=== PATIENT | female | born 1970 | race Caucasian/White ===

== ENCOUNTER 2017-06-20 18:44 | Observation (INO) ==
[2017-06-20] MEDS ORDERED: *HR* Morphine 2 MG/ML SYRINGE IVP ONE (19:05)
[2017-06-20] MEDS ORDERED: 0.9 % Sodium Chloride 1,000 ML IVC ONE (19:05)
[2017-06-20] MEDS ORDERED: Ondansetron 4 MG/2 ML VIAL IVP ONE (19:05)
[2017-06-20 19:28] LABS: Basophils # 0.1 K/mcL (0.0-0.2); Basophils % 0.3 %; Eosinophils % 0.1 %; Hematocrit 42.6 % (35.3-44.9); Hemoglobin 14.6 g/dL (11.5-15.4); Immature Granulocytes % 0.6 % (0-4); Lymphocytes # 0.8 K/mcL (0.6-4.6); Mean Corpuscular HGB Conc 34.3 g/dL (31.6-35.5); Mean Corpuscular Hemoglobin 31.7 pg (28.0-33.3); Mean Corpuscular Volume 92.6 fL (83.0-100.0); Mean Platelet Volume 10.5 fL (9.4-12.4); Monocytes # 1.8 K/mcL (0.0-1.3); Monocytes % 11.7 %; Neutrophils # 12.4 K/mcL (1.6-8.9); Platelet Count 221 K/mcL (140-400); Red Cell Distribution Width 12.7 % (11.5-14.5); Segmented Neutrophils % 82.3 %
--- NOTE | 2017-06-20 19:30 | Emergency Department Note ---
Disposition Clinical Impression: Bilateral kidney stones Leukocytosis Qualifiers: Leukocytosis type: unspecified Qualified Code(s): D72.829 - Elevated white blood cell count, unspecified Disposition: Admitted As Inpatient Condition: Good Forms: ED Satisfaction Letter, Work/School Release Time of Disposition: 22:11 General Adult HPI - General Chief complaint: ED Abdominal Pain Stated complaint: weakness, back pain Time Seen by Provider: 06/20/17 18:52 Source: patient Limitations: no limitations Nursing Notes Reviewed: Yes Vital Signs Reviewed: Yes - History of Present Illness HPI Narrative: Patient is a 47-year-old female that presents to emergency department with right flank and abdominal pain. She states that this began approximately 3 days ago. She states she has been having right flank pain this radiating around into her lower right abdomen. She states that she has had cloudy urine that is foul smelling. She denies any pain or burning with urination. She states that she has a history of kidney stones and this feels very similar to previous kidney stones. Patient states that any sort of movement makes her pain worse. She rates her pain as a 10 out of 10. Patient has tried taking Advil without any relief. Pain Scale: 10 - Related Data Allergies Allergy/AdvReac Type Severity Reaction Status Date / Time No Known Allergies Allergy Verified 06/20/17 18:46 All systems ED: reviewed and negative except as stated. Constitutional: Reports: fever, chills Gastrointestinal: Reports: abdominal pain, nausea Genitourinary: Reports: other (Cloudy foul-smelling urine) Musculoskeletal: Reports: back pain Past Medical History - Past Medical History Medical history: Reports: hypertension, kidney stones, thyroid disease Psychiatric history: Reports: no psych history - Social History Smoking Status: Never smoker Alcohol use: Reports: none Drug use: Reports: none Physical Exam - General Limitations: no limitations General appearance: alert, in no apparent distress - Head Head exam: atraumatic, normocephalic - Eye Eye exam: Present: normal appearance, EOMI - Neck Neck exam: Present: normal inspection, full ROM, trachea midline - Respiratory Respiratory exam: Present: normal lung sounds bilaterally. Absent: respiratory distress, wheezes - Cardiovascular Cardiovascular exam: Present: regular rate, normal rhythm, normal heart sounds, +S1, +S2 - Abdominal Exam Abdominal exam: Present: soft, tenderness, normal bowel sounds Abdominal tenderness: Present: RLQ, suprapubic, moderate - Back Exam Back exam: Present: normal inspection, full ROM, CVA tenderness (R), CVA tenderness (L). Absent: tenderness - Neurological Exam Neurological exam: Present: alert, oriented X3 - Psychiatric Psychiatric exam: Present: normal affect, normal mood - Skin Skin exam: Present: warm, dry, intact Course Vital Signs Temperature 98.9 F 06/20/17 18:47 Pulse Rate 128 06/20/17 18:47 Respiratory Rate 18 06/20/17 18:47 Blood Pressure 108/79 06/20/17 18:47 O2 Sat by Pulse Oximetry 98 06/20/17 18:47 Temperature 98.9 F 06/20/17 18:47 Pulse Rate 104 06/20/17 19:45 Respiratory Rate 16 06/20/17 19:45 Blood Pressure 108/73 06/20/17 19:45 O2 Sat by Pulse Oximetry 95 06/20/17 19:45 Oxygen Delivery Oxygen Delivery Room Air Medical Decision Making - MDM Narrative Medical decision making narrative: The patient having flank and abdominal pain history of kidney stone we will order a CBC, BMP, lipase, urine and a CT of the abdomen and pelvis. We also give the patient a liter of fluids, pain medication and antiemetics. The patient's CT scan was positive for bilateral kidney stones. She also had an elevated white count. We have called and spoke with urology and they agreed with admitting the patient to the hospital. Patient did have leukocyte esterase and bacteria in her urine. We started patient on antibiotics. Also given the patient a dose of pain medication. Patient did have an elevated white count. The patient will be admitted to the hospital. I called and spoke with the hospitalist met except the patient to their service they request that we put in the consult for urology and this has been done. The patient will be admitted to the hospital at this time for further evaluation and management. - Medical Records Medical records reviewed: Yes I reviewed the patient's medical records. - Lab Data Lab results reviewed: Yes I reviewed the patient's lab results. Result diagrams: 06/20/17 19:20 06/20/17 19:20 Lab Results 06/20/17 06/20/17 06/20/17 Range/Units 19:20 19:20 19:25 WBC 15.1 H (4.3-11.1) K/mcL RBC 4.60 (3.82-4.97) M/mcL Hgb 14.6 (11.5-15.4) g/dL Hct 42.6 (35.3-44.9) % MCV 92.6 (83.0-100.0) fL MCH 31.7 (28.0-33.3) pg MCHC 34.3 (31.6-35.5) g/dL RDW 12.7 (11.5-14.5) % Plt Count 221 (140-400) K/mcL MPV 10.5 (9.4-12.4) fL Immature Gran % 0.6 (0-4) % Seg Neutrophils % 82.3 % Lymphocytes % 5.0 % Monocytes % 11.7 % Eosinophils % 0.1 % Basophils % 0.3 % Neutrophils # 12.4 H (1.6-8.9) K/mcL Lymphocytes # 0.8 (0.6-4.6) K/mcL Monocytes # 1.8 H (0.0-1.3) K/mcL Eosinophils # 0.0 (0.0-0.6) K/mcL Basophils # 0.1 (0.0-0.2) K/mcL Sodium 133 L (136-145) mEq/L Potassium 3.4 L (3.5-5.1) mEq/L Chloride 95 L (98-107) mEq/L Carbon Dioxide 28 (23-29) mEq/L BUN 18 (6-20) mg/dL Creatinine 1.01 (0.60-1.20) mg/dL Est GFR ( Amer) > 60 (> 60) Est GFR (Non-Af Amer) 59 L (> 60) BUN/Creatinine Ratio 18 (6-26) Glucose 140 H (70-105) mg/dL Calculated Osmolality 280 (280-300) Calcium 9.2 (8.6-10.3) mg/dL Total Bilirubin 0.8 (0.3-1.0) mg/dL Direct Bilirubin 0.1 (0.0-0.2) mg/dL Indirect Bilirubin 0.7 (0.0-1.2) mg/dL AST 15 (13-39) Units/L ALT 22 (7-52) Units/L Alkaline Phosphatase 59 (34-104) Units/L Serum Total Protein 7.3 (6.4-8.9) g/dL Albumin 4.0 (3.5-5.7) g/dL Globulin 3.3 (2.4-3.5) g/dL Albumin/Globulin Ratio 1.2 (1.1-2.2) Lipase 13 (11-82) Units/L Urine Color Dark Yellow (Yellow) Urine Clarity Turbid A (Clear) Urine pH 5.5 (5.0-8.0) pH Units Ur Specific [place] 1.023 (1.010-1.025) Urine Protein 100 H (Neg-Trace) mg/dL Urine Glucose (UA) Normal (Normal) mg/dL Urine Ketones 15 H (Negative) mg/dL Urine Blood Moderate H (Negative) Urine Nitrite Negative (Negative) Urine Bilirubin Negative (Negative) Urine Urobilinogen Normal (Normal) mg/dL Ur Leukocyte Esterase Large H (Negative) Urine Microscopic RBC 5-15 H (0-3) per hpf Urine Microscopic WBC TNTC H (0-3) per hpf Ur Squamous Epith Cells Many H (None-Few) per lpf Urine Bacteria Many H (None-Few) per hpf Hyaline Casts None Seen (None-Few) per lpf Ur Culture Indicated? NO (NO) Urine Test (Negative) 06/20/17 Range/Units 19:25 WBC (4.3-11.1) K/mcL RBC (3.82-4.97) M/mcL Hgb (11.5-15.4) g/dL Hct (35.3-44.9) % MCV (83.0-100.0) fL MCH (28.0-33.3) pg MCHC (31.6-35.5) g/dL RDW (11.5-14.5) % Plt Count (140-400) K/mcL MPV (9.4-12.4) fL Immature Gran % (0-4) % Seg Neutrophils % % Lymphocytes % % Monocytes % % Eosinophils % % Basophils % % Neutrophils # (1.6-8.9) K/mcL Lymphocytes # (0.6-4.6) K/mcL Monocytes # (0.0-1.3) K/mcL Eosinophils # (0.0-0.6) K/mcL Basophils # (0.0-0.2) K/mcL Sodium (136-145) mEq/L Potassium (3.5-5.1) mEq/L Chloride (98-107) mEq/L Carbon Dioxide (23-29) mEq/L BUN (6-20) mg/dL Creatinine (0.60-1.20) mg/dL Est GFR ( Amer) (> 60) Est GFR (Non-Af Amer) (> 60) BUN/Creatinine Ratio (6-26) Glucose (70-105) mg/dL Calculated Osmolality (280-300) Calcium (8.6-10.3) mg/dL Total Bilirubin (0.3-1.0) mg/dL Direct Bilirubin (0.0-0.2) mg/dL Indirect Bilirubin (0.0-1.2) mg/dL AST (13-39) Units/L ALT (7-52) Units/L Alkaline Phosphatase (34-104) Units/L Serum Total Protein (6.4-8.9) g/dL Albumin (3.5-5.7) g/dL Globulin (2.4-3.5) g/dL Albumin/Globulin Ratio (1.1-2.2) Lipase (11-82) Units/L Urine Color (Yellow) Urine Clarity (Clear) Urine pH (5.0-8.0) pH Units Ur Specific [place] (1.010-1.025) Urine Protein (Neg-Trace) mg/dL Urine Glucose (UA) (Normal) mg/dL Urine Ketones (Negative) mg/dL Urine Blood (Negative) Urine Nitrite (Negative) Urine Bilirubin (Negative) Urine Urobilinogen (Normal) mg/dL Ur Leukocyte Esterase (Negative) Urine Microscopic RBC (0-3) per hpf Urine Microscopic WBC (0-3) per hpf Ur Squamous Epith Cells (None-Few) per lpf Urine Bacteria (None-Few) per hpf Hyaline Casts (None-Few) per lpf Ur Culture Indicated? (NO) Urine Test Negative (Negative) - Radiology Data Radiology results reviewed: Yes I reviewed the patient's radiology results. Abdomen/Pelvis CT 06/20/17 19:06 IMPRESSION: 1. 6.5 mm obstructing stone within the distal right ureter with resultant right hydroureter and hydronephrosis as well as right perinephric stranding. 2. Nonobstructing 3 mm stone within the proximal left ureter and nonobstructing 6.4 mm stone within the left kidney. 3. Multiple pulmonary nodules within the right lower and middle lobes with the largest measuring 8.4 mm. Follow-up per Fleischner criteria. RECOMMENDATIONS: Fleischner Society guidelines for follow-up and management of incidentally detected pulmonary nodules: Single Solid Nodule: Nodule size less than 6 mm In a low-risk patient, no routine follow-up. In a high-risk patient, optional CT at 12 months. Nodule size equals 6-8 mm In a low-risk patient, CT at 6-12 months, then consider CT at 18-24 months. In a high-risk patient, CT at 6-12 months, then CT at 18-24 months. Nodule size greater than 8 mm In a low-risk patient, consider CT, PET/CT, or tissue sampling at 3 months. In a high-risk patient, consider CT, PET/CT, or tissue sampling at 3 months. Multiple Solid Nodules: Nodule size less than 6 mm In a low-risk patient, no routine follow-up. In a high-risk patient, optional CT at 12 months. Nodule size equals 6-8 mm In a low-risk patient, CT at 3-6 months, then consider CT at 18-24 months. In a high-risk patient, CT at 3-6 months, then CT at 18-24 months. Nodule size greater than 8 mm In a low-risk patient, CT at 3-6 months, then consider CT at 18-24 months. In a high-risk patient, CT at 3-6 months, then CT at 18-24 months. - Low risk patients include individuals with minimal or absent history of smoking and other known risk factors. - High risk patients include individuals with a history or smoking or known risk factors. Radiology 2017 http://pubs.rsna.org/doi/full/[email or web address] D/ / Dillon Moreland MD / Dillon Moreland MD Interpreting Provider: Dillon Moreland MD
[2017-06-20 19:33] LABS: Bilirubin,Urine Negative (Negative); Blood,Urine Moderate (Negative); Clarity,Urine Turbid (Clear); Color,Urine Dark Yellow (Yellow); Glucose,Urine (UA) Normal (Normal); Ketones,Urine 15 mg/dL (Negative); Leukocyte Esterase,Urine Large (Negative); Nitrite,Urine Negative (Negative); PH,Urine 5.5 pH Units (5.0-8.0); Protein,Urine 100 mg/dL (Neg-Trace); Specific Gravity,Urine 1.023 (1.010-1.025); Urobilinogen,Urine Normal (Normal)
[2017-06-20 19:35] LABS: Bacteria,Urine Many per hpf (None-Few); Hyaline Casts,Urine None Seen per lpf (None-Few); Squamous Epithelial Cell,Urine Many per lpf (None-Few); WBC,Urine TNTC per hpf (0-3)
[2017-06-20 19:43] LABS: Alanine Aminotransferase 22 Units/L (7-52); Albumin/Globulin Ratio 1.2 (1.1-2.2); Alkaline Phosphatase 59 Units/L (34-104); Aspartate Amino Transferase 15 Units/L (13-39); BUN/Creatinine Ratio 18 (6-26); Bilirubin,Direct 0.1 mg/dL (0.0-0.2); Bilirubin,Indirect 0.7 mg/dL (0.0-1.2); Bilirubin,Total 0.8 mg/dL (0.3-1.0); Blood Urea Nitrogen 18 mg/dL (6-20); Calcium 9.2 mg/dL (8.6-10.3); Carbon Dioxide 28 mEq/L (23-29); Chloride 95 mEq/L (98-107); Globulin 3.3 g/dL (2.4-3.5); Glucose 140 mg/dL (70-105); Lipase 13 Units/L (11-82); Osmolality,Calculated 280 (280-300); Potassium 3.4 mEq/L (3.5-5.1); Sodium 133 mEq/L (136-145); Total Protein 7.3 g/dL (6.4-8.9); eGFR For African Americans > 60 (> 60); eGFR For Non-African Americans 59 (> 60)
[2017-06-20] MEDS ORDERED: Levofloxacin 750 MG/150 ML 750 MG/150 ML BAG IVPB ONE (19:49)
[2017-06-20] MEDS ORDERED: *HR* HYDROmorphone (PF) 1 MG/ML SYRINGE IVP ONE (20:26)
--- NOTE | 2017-06-20 20:43 | Emergency Department Note ---
START Narrative - START START: I examined this patient and my medical decision-making was reviewed with the Resident Physician. I agree with the documented findings, disposition and treatment plan as described except to the extent set forth below. 47-year-old female presents emergency room for back pain. Patient was found to have 2 ureteral stones. One on the right side as well as one on the left side. History of urosepsis secondary to an infected ureteral stone in the past. Patient will need to be admitted as she does have an elevated white count as well as both ureters being affected at the same time. Her BUN/creatinine are stable. I have ordered IV Levaquin. We have consult did with Dr. Hutson with urology. We will admit to the hospitalist.
[2017-06-20] MEDS ORDERED: *HR* OxyCODONE/APAP 5/325 TABLET PO PRN (22:12)
[2017-06-20] MEDS ORDERED: Naloxone 0.4 MG/ML INJ IVP PRN (23:22)
[2017-06-20] MEDS ORDERED: Acetaminophen 325 MG TABLET PO PRN (23:22)
[2017-06-20] MEDS: 0.9 % Sodium Chloride 1,000 ML IVC SCH (23:57)
[2017-06-21] MEDS ORDERED: *HR* HYDROmorphone (PF) 1 MG/ML SYRINGE IVP PRN ×4 (00:51→16:20)
--- NOTE | 2017-06-21 01:00 | Internal Med History&Physical ---
Date of Encounter: 06/20/17 Time of Encounter: 23:10 Assessment and Plan (1) Hydronephrosis with renal calculous obstruction Current visit: Yes Status: Acute Will follow up with urology consult. Continue patient supportiv care, IVF, dilaudid prn pain, Zofran prn nausea. NPO at midnight. (2) Bilateral kidney stones Current visit: Yes Status: Acute (3) Multiple lung nodules on CT Current visit: Yes Status: Acute Seen on CT abdomen/pelvis. Multiple pulmonary nodules within the right lower and middle lobes with the largest measuring 8.4 mm. Fleischner Society guidelines recommend CT at 3-6 months. Internal Medicine - H&P: HPI History of present illness: 47 year old female with history of nephrolithiasis presents for bilateral flank pain. Started 3 days ago which radiates down to groin, with urine changes in appearance and smell. She has history of UTI causing sepsis. Today she is shown to have UTI and leukocytosis. Creatinine is within normal limits but GFR is in 50s. A CT of abdomen/pelvis showed 6.5 mm obstructing stone in right ureter with hydroureter and hydronephrosis. She was started on IVF, Levaquin, and given Dilauded for pain. Past Med Surg Social Fam HX - Past Medical History Medical history: hypertension, kidney stones, thyroid disease Psychiatric history: no psych history - Past Surgical History Surgical History: cholecystectomy, hysterectomy - Social History Smoking Status: Never smoker Alcohol use: none Drug use: none Internal Medicine - H&P: Meds 3 Allergy/AdvReac Type Severity Reaction Status Date / Time No Known Allergies Allergy Verified 06/20/17 18:46 All Systems PM: A 10-system review of systems was performed and is negative for pertinent findings except as documented above in the HPI. - Constitutional Constitutional: chills, fever(s), no lethargy, no weakness - EENT Eyes: no change in vision, no discharge, no pain, no photophobia - Cardiovascular Cardiovascular ROS IM: no chest pain, no diaphoresis, no dyspnea, no lightheadedness, no palpitations, no syncope - Respiratory Respiratory: no cough, no dyspnea, no wheezing, no excessive phlegm production - Gastrointestinal Gastrointestinal: abdominal pain - Genitourinary Genitourinary: dysuria, flank pain, no difficulty urinating, no difficulty voiding, no genital lesions, no hematuria - Integumentary Integumentary IM: no rash, no unusual bruising - Constitutional Vitals: Temp Pulse Resp BP Pulse Ox 98.1 F 87 16 102/67 97 06/20/17 23:53 06/20/17 23:53 06/20/17 23:53 06/20/17 23:53 06/20/17 23:53 Exam: - General Limitations: no limitations General appearance: alert, in no apparent distress - Head Head exam: atraumatic, normocephalic - Eye Eye exam: Present: normal appearance, EOMI - Neck Neck exam: Present: normal inspection, full ROM, trachea midline - Respiratory Respiratory exam: Present: normal lung sounds bilaterally. Absent: respiratory distress, wheezes - Cardiovascular Cardiovascular exam: Present: regular rate, normal rhythm, normal heart sounds, +S1, +S2 - Abdominal Exam Abdominal exam: Present: soft, tenderness, normal bowel sounds Abdominal tenderness: Present: RLQ, suprapubic, moderate - limits exam due to pain - Back Exam Back exam: Present: normal inspection, full ROM, CVA tenderness (R), CVA tenderness (L). - Neurological Exam Neurological exam: Present: alert, oriented X3 - Psychiatric Psychiatric exam: Present: normal affect, normal mood - Skin Skin exam: Present: warm, dry, intact Internal Med - H&P Results - Labs CBC & Chem 7: 06/20/17 19:20 06/20/17 19:20
[2017-06-21 04:47] LABS: Hematocrit 32.7 % (35.3-44.9); Mean Corpuscular HGB Conc 34.3 g/dL (31.6-35.5); Mean Corpuscular Hemoglobin 31.5 pg (28.0-33.3); Mean Corpuscular Volume 92.1 fL (83.0-100.0); Platelet Count 182 K/mcL (140-400); Red Blood Count 3.55 M/mcL (3.82-4.97); Red Cell Distribution Width 12.8 % (11.5-14.5)
[2017-06-21 04:49] LABS: BUN/Creatinine Ratio 23 (6-26); Blood Urea Nitrogen 17 mg/dL (6-20); Calcium 7.9 mg/dL (8.6-10.3); Carbon Dioxide 28 mEq/L (23-29); Chloride 103 mEq/L (98-107); Glucose 115 mg/dL (70-105); Osmolality,Calculated 282 (280-300); Potassium 3.7 mEq/L (3.5-5.1); Sodium 135 mEq/L (136-145); eGFR For African Americans > 60 (> 60); eGFR For Non-African Americans > 60 (> 60)
[2017-06-21 05:15] LABS: Hemoglobin 11.2 g/dL (11.5-15.4)
[2017-06-21 05:16] LABS: Lymphocytes # 1.4 K/mcL (0.6-4.6); Monocytes # 1.8 K/mcL (0.0-1.3); Neutrophils # 8.2 K/mcL (1.6-8.9)
[2017-06-21 05:17] LABS: Platelet Estimate Normal (Normal)
[2017-06-21] MEDS: 0.9 % Sodium Chloride 1,000 ML IVC SCH (06:37)
--- NOTE | 2017-06-21 06:47 | Urology - Consult Note ---
Date of Encounter: 06/21/17 Time of Encounter: 06:47 Urology CN:DENISHA History of present illness: Ms. Montalvo is a 47 year old female presents to ER with flank pain. CT results below. +hx of stone stones. states has not had decrease in UO CT scan 1. 6.5 mm obstructing stone within the distal right ureter with resultant right hydroureter and hydronephrosis as well as right perinephric stranding. 2. Nonobstructing 3 mm stone within the proximal left ureter and nonobstructing 6.4 mm stone within the left kidney. Past Med Surg Social Fam HX - Past Medical History Medical history: hypertension, kidney stones, thyroid disease Psychiatric history: no psych history - Past Surgical History Surgical History: cholecystectomy, hysterectomy - Social History Smoking Status: Never smoker Alcohol use: none Drug use: none Medications and Allergies 3 Allergy/AdvReac Type Severity Reaction Status Date / Time No Known Allergies Allergy Verified 06/20/17 18:46 Exam Initial Vital Signs Temp Pulse Resp BP Pulse Ox 98.9 F 128 18 108/79 98 06/20/17 18:47 06/20/17 18:47 06/20/17 18:47 06/20/17 18:47 06/20/17 18:47 Urology Results - Labs 06/21/17 04:10 06/21/17 04:10 Abnormal lab results WBC 11.4 K/mcL (4.3-11.1) H 06/21/17 04:10 RBC 3.55 M/mcL (3.82-4.97) L 06/21/17 04:10 Hgb 11.2 g/dL (11.5-15.4) L D 06/21/17 04:10 Hct 32.7 % (35.3-44.9) L 06/21/17 04:10 Band Neutrophils % 26.0 % (0-4) H 06/21/17 04:10 Monocytes # 1.8 K/mcL (0.0-1.3) H 06/21/17 04:10 Sodium 135 mEq/L (136-145) L 06/21/17 04:10 Glucose 115 mg/dL (70-105) H 06/21/17 04:10 Calcium 7.9 mg/dL (8.6-10.3) L 06/21/17 04:10 Urine Clarity Turbid (Clear) A 06/20/17 19:25 Urine Protein 100 mg/dL (Neg-Trace) H 06/20/17 19:25 Urine Ketones 15 mg/dL (Negative) H 06/20/17 19:25 Urine Blood Moderate (Negative) H 06/20/17 19:25 Ur Leukocyte Esterase Large (Negative) H 06/20/17 19:25 Urine Microscopic RBC 5-15 per hpf (0-3) H 06/20/17 19:25 Urine Microscopic WBC TNTC per hpf (0-3) H 06/20/17 19:25 Ur Squamous Epith Cells Many per lpf (None-Few) H 06/20/17 19:25 Urine Bacteria Many per hpf (None-Few) H 06/20/17 19:25 Diabetes panel 06/21/17 Range/Units 04:10 Sodium 135 L (136-145) mEq/L Potassium 3.7 (3.5-5.1) mEq/L Chloride 103 (98-107) mEq/L Carbon Dioxide 28 (23-29) mEq/L BUN 17 (6-20) mg/dL Creatinine 0.75 (0.60-1.20) mg/dL Glucose 115 H (70-105) mg/dL Calcium 7.9 L (8.6-10.3) mg/dL Calcium panel 06/21/17 Range/Units 04:10 Calcium 7.9 L (8.6-10.3) mg/dL Pituitary panel 06/21/17 Range/Units 04:10 Sodium 135 L (136-145) mEq/L Potassium 3.7 (3.5-5.1) mEq/L Chloride 103 (98-107) mEq/L Carbon Dioxide 28 (23-29) mEq/L BUN 17 (6-20) mg/dL Creatinine 0.75 (0.60-1.20) mg/dL Glucose 115 H (70-105) mg/dL Calcium 7.9 L (8.6-10.3) mg/dL Adrenal panel 06/21/17 Range/Units 04:10 Sodium 135 L (136-145) mEq/L Potassium 3.7 (3.5-5.1) mEq/L Chloride 103 (98-107) mEq/L Carbon Dioxide 28 (23-29) mEq/L BUN 17 (6-20) mg/dL Creatinine 0.75 (0.60-1.20) mg/dL Glucose 115 H (70-105) mg/dL Calcium 7.9 L (8.6-10.3) mg/dL All other labs normal. Consult Discharge Plan - Plan Referrals: Rossana Harmon MD [Primary Care Provider] -
--- NOTE | 2017-06-21 09:13 | Internal Med Progress Note ---
Date of Encounter: 06/21/17 Time of Encounter: 09:10 - Assessment and plan (1) UTI (urinary tract infection) Current Visit: Yes Status: Acute Assessment and plan: Patient has obstructive stone and UA shows UTI. Concerning for pyelonephritis. Will start ceftriaxone IV. Patient received 1 dose of Levaquin on admission. Qualifiers: Urinary tract infection type: acute pyelonephritis Qualified Code(s): N10 - Acute pyelonephritis (2) Bilateral kidney stones Current Visit: Yes Status: Acute Assessment and plan: Patient has a right-sided 6.5 mm obstructive stone with distal right ureter hydroureteral and hydronephrosis. Urologist was consulted planning for cystoscopic stents placement. She also has nonobstructing 3 mm stone was in the proximal left ureter and nonobstructing 6.4 mm stone was in the left kidney. Plan control was IV Dilaudid continue IV fluids (3) Leukocytosis Current Visit: Yes Status: Acute Assessment and plan: His leukocytosis is likely from acute pyelonephritis continue ceftriaxone Qualifiers: Leukocytosis type: bandemia Qualified Code(s): D72.825 - Bandemia (4) Multiple lung nodules on CT Current Visit: Yes Status: Acute Assessment and plan: Follow-up CT scan in 6-12 months (5) Hydronephrosis with renal calculous obstruction Current Visit: Yes Status: Acute Assessment and plan: Urologist was consulted and planning for stents placement. - Time Spent With Patient 25 - 35 minutes - Subjective Interval history: 47 year old female with history of nephrolithiasis presents for bilateral flank pain. A CT of abdomen/pelvis showed 6.5 mm obstructing stone in right ureter with hydroureter and hydronephrosis and left nonobstructing stones She was started on IVF, received one dose of Levaquin, and given Dilauded for pain. Patient feels better, she still have low back pain radiating to right lower quadrant drain 7 out of 10 sharp cramping. Afebrile white cells trending down creatinine also improved. She is waiting for procedure for possible stents placement - Constitutional Vitals: Temp Pulse Resp BP Pulse Ox 98.1 F 79 14 90/57 97 06/21/17 07:23 06/21/17 07:23 06/21/17 07:23 06/21/17 07:23 06/21/17 07:23 Exam: CONSTITUTIONAL: patient appears as an age appropriate female in no acute distress. EYES Clear sclerae, bilateral pupils are equal, reactive to light. EMOI. RESPIRATORY: No accessory muscle use, bilateral clear to auscultation, no wheezing, no crackles/rales. CARDIOVASCULAR: Regular heart rate, normal S1 and S2, no murmurs GASTROINTESTINAL: bowel sounds present, soft, no tenderness. MUSCULOSKELETAL: Joints in normal range of motion, no clubbing, no edema, no cyanosis. Bilateral peripheral pulses 2+. NEUROLOGIC: CN II to XII are grossly intact, no focal neurological deficit. Internal Medicine: Result - Labs CBC & Chem 7: 06/21/17 04:10 06/21/17 04:10 Labs: Short CBC 06/21/17 Range/Units 04:10 WBC 11.4 H (4.3-11.1) K/mcL Hgb 11.2 L D (11.5-15.4) g/dL Hct 32.7 L (35.3-44.9) % Plt Count 182 (140-400) K/mcL Neutrophils # 8.2 (1.6-8.9) K/mcL BMP 06/21/17 04:10 Sodium 135 L Potassium 3.7 Chloride 103 Carbon Dioxide 28 BUN 17 Creatinine 0.75 Glucose 115 H Calcium 7.9 L Consult Discharge Plan - Plan Referrals: Rossana Harmon MD [Primary Care Provider] -
[2017-06-21] MEDS ORDERED: cefTRIAXone 1,000 MG in Water for inj. (sterile) 10 ML IVP SCH (10:00)
[2017-06-21] MEDS ORDERED: *HR* OxyCODONE/APAP 5/325 TABLET PO PRN ×2 (11:24→16:20)
--- NOTE | 2017-06-21 13:49 | Anesthesia Evaluation PreOp ---
Date of Encounter: 06/21/17 Time of Encounter: 13:47 - Past History Planned Operation: bilateral USE with laser Cardiac History: HTN Pulmonary History: Other (lung nodules) [employer] AGENT History: Denies Any Significant HX Other Medical History: Renal (bilateral stones with UTI), Thyroid (hypo) Anesthesia History: No Prior Anesthetic Complications, Past Anesthesia (carine, BRAD) : No Alcohol Use: none Drug use: none Medications and Allergies Celecoxib [Celebrex] 200 mg PO DAILY 06/21/17 [History] Levothyroxine [Synthroid] 75 mcg PO DAILY 06/21/17 [History] Lisinopril [Zestril] 20 mg PO DAILY 06/21/17 [History] Meloxicam [Mobic] 15 mg PO DAILY 06/21/17 [History] 3 Allergy/AdvReac Type Severity Reaction Status Date / Time No Known Allergies Allergy Verified 06/20/17 18:46 - Meds/Allergy Pre-op Review Medications Reviewed: Yes Allergies Reviewed: Yes Beta Blockers on Current Med List: No Anesthesia Results - Labs 06/21/17 04:10 06/21/17 04:10 Anesthesia Exam Selected Entries 06/21/17 10:43 Temperature 98.6 F Pulse Rate 72 Respiratory Rate 14 Blood Pressure 92/61 O2 Sat by Pulse Oximetry 96 Weight: 72kg NPO (# of Hours): 8 - HEENT Pupil (Motor): EOMI Mallampati: II Teeth: Normal Oral Opening: Less than or equal to 3 - [employer] AGENT LOC: Oriented [employer] Motor: Normal RUE, Normal LUE, Normal RLE, Normal LLE, Normal Face [employer] Sensory: Normal: RUE, LUE, RLE, LLE, Face - Cardiac Rhythm: Regular Murmur: None - Pulmonary Breath Sounds: bilateral Clear Respiratory Effort: Symmetrical Anesthesia Assess/Plan ASA Score: 2 Modified Vanessa Scale for Level of Consciousness: Cooperative, oriented, and tranquil Anesthetic Plan: General Monitoring Plan: Standard Monitors Recovery Plan: PACU (agrees to [place])
--- NOTE | 2017-06-21 14:57 | Operative Note ---
Date of procedure: 06/21/17 Pre-op diagnosis: Bilateral ureteral stones. 7 mm distal (left). 3 mm prox right Post-op diagnosis: same Procedure: Bilateral ureteroscopic stone extraction Right side with laser lithotripsy Bilateral retrograde pyelogram Bilateral JJ stents. Anesthesia: GETA Surgeon: Javier Harmon Estimated blood loss (cc): 0 Specimen: stone fragments Condition: stable Disposition: PACU Procedure in Detail: PROCEDURE IN DETAIL: Patient was taken back to the operating room, positioned supine on the operating table. Anesthesia was applied without complication. They were moved into dorsal lithotomy. Careful attention was maintained to cushion all pressure points for patient's safety. They were prepped and draped in sterile fashion. Time-out was performed with the proper patient and procedure. A 21-Nepali rigid cystoscope was inserted into the bladder without difficulty. Systematic examination of bladder revealed no abnormalities. The right ureteral orifice was cannulated using a 5-Nepali ureteral Catheter and a retrograde pyelogram was performed using Isovue. A filling defect was identified which corresponded to the stone. At that point, a zip wire was placed through the 5-Nepali and confirmed in the renal pelvis with fluoroscopy. A semi-rigid ureteroscope was carefully inserted into the bladder and guided into the ureteral oriface. At that point, the stone was encountered and I felt that it required fragmentation for safe extraction. A 200 micron holmium laser fiber on a setting of 8 and 800 was used to fragment the stone into multiple pieces. The fragments were individually basketed out of the ureter with a 1.9 tipless basket. All stone in the right ureter was removed. I then proceeded to cannulate the left ureteral orifice with the semirigid ureteroscope. Retrograde pyelogram confirmed a proximal filling defect consistent with stone. I passed a zip wire and then passed the semirigid ureteroscope around the zip wire. I was able to reach the proximal stone with the semirigid scope and basket extract the stone without performing laser lithotripsy. I placed a second zip wire on the left side. At the end of the procedure two 4.8 x 26 ureteral stents were placed over the zip wires under fluoroscopy without complication. The bladder was drained along with the stone fragments. They were collected and sent for stone analysis. The strings on both stents were left attached to the stents and secured to the patient for easy removal in approximately 72 hours
[2017-06-21] MEDS ORDERED: *HR* Midazolam HCl 2 MG/2 ML VIAL ONE (15:07)
[2017-06-21] MEDS ORDERED: Dexamethasone 4 MG/ML VIAL ONE (15:07)
[2017-06-21] MEDS ORDERED: *HR* FentaNYL (PF) 100 MCG/2 ML VIAL ONE ×2 (15:07→15:10)
[2017-06-21] MEDS ORDERED: Ondansetron 4 MG/2 ML VIAL ONE (15:07)
[2017-06-21] MEDS ORDERED: *HR* Propofol 200 MG/20 ML VIAL IVP ONE (15:07)
[2017-06-21] MEDS ORDERED: *HR* Promethazine 25 MG/ML VIAL IVP PRN (15:15)
[2017-06-21] MEDS ORDERED: Ketorolac 30 MG/ML VIAL ONE (15:31)
--- NOTE | 2017-06-21 15:56 | Event Note ---
Date of Encounter: 06/21/17 Time of Encounter: 15:55 Both the left and right ureteral stones were extracted without complication. I recommend the patient is observed overnight. If her vital signs are stable and she is afebrile okay to discharge in the morning. The stents can be removed on Tuesday. The patient can remove the stents by pulling on the strings until the entire stents are out. If patient unable to remove stents at home, patient can present to the urology office for stent removal.
--- NOTE | 2017-06-21 16:09 | Anesthesia Evaluation Post Op ---
Date of Encounter: 06/21/17 Time of Encounter: 16:08 - Vital Signs Vital Signs: Selected Entries 06/21/17 15:43 06/21/17 16:02 Temperature 98.7 F Pulse Rate 83 Respiratory Rate 16 Blood Pressure 100/71 O2 Sat by Pulse Oximetry 95 Oxygen Flow Rate (LPM) 2 - Lungs Lungs: Clear Ascult./Percussion - Airway Airway: Non-obstructed - Cardiovascular Regular Rate - Mental Status Mental Status: Alert & Oriented, Answers Appropriately - Pain Pain Scale: 2 Pain Scale used: Numeric (1 - 10) - Nausea Vomiting Nausea Vomiting: Not Present - Hydration Hydration: Ice chips, Has not voided - Discharge PostOp Status: Transfer Patient to floor
[2017-06-21] MEDS ORDERED: Acetaminophen 325 MG TABLET PO PRN (16:20)
[2017-06-21] MEDS ORDERED: Naloxone 0.4 MG/ML INJ IVP PRN (16:20)
[2017-06-22 05:42] LABS: Hemoglobin 11.5 g/dL (11.5-15.4); Mean Corpuscular HGB Conc 33.8 g/dL (31.6-35.5); Mean Corpuscular Hemoglobin 31.7 pg (28.0-33.3); Mean Corpuscular Volume 93.7 fL (83.0-100.0); Mean Platelet Volume 11.4 fL (9.4-12.4); Platelet Count 240 K/mcL (140-400); Red Blood Count 3.63 M/mcL (3.82-4.97); Red Cell Distribution Width 13.1 % (11.5-14.5)
[2017-06-22 05:54] LABS: BUN/Creatinine Ratio 23 (6-26); Blood Urea Nitrogen 18 mg/dL (6-20); Calcium 8.4 mg/dL (8.6-10.3); Carbon Dioxide 24 mEq/L (23-29); Chloride 108 mEq/L (98-107); Glucose 165 mg/dL (70-105); Osmolality,Calculated 294 (280-300); Potassium 3.5 mEq/L (3.5-5.1); Sodium 139 mEq/L (136-145); eGFR For African Americans > 60 (> 60); eGFR For Non-African Americans > 60 (> 60)
[2017-06-22 06:10] LABS: Lymphocytes # 0.9 K/mcL (0.6-4.6); Monocytes # 0.5 K/mcL (0.0-1.3); Neutrophils # 7.1 K/mcL (1.6-8.9); Platelet Estimate Normal (Normal)
[2017-06-22 06:49] VITALS: BP 110/70
--- NOTE | 2017-06-22 06:58 | Urology Progress Note ---
Date of Encounter: 06/22/17 Time of Encounter: 06:58 - Assessment and Plan (1) Bilateral ureteral calculi Current Visit: Yes Status: Resolved Assessment and plan: Okay with discharge per urology standpoint. Patient also ready for discharge. Labs and vital signs stable. Patient states she is comfortable removing the stents at home on Brian. M.D. provided instructions. Okay to follow-up with urology in 2 weeks. Recommend Bactrim double strength 1 tablet by mouth twice a day for 7 days. Pyridium 200 mg by mouth 3 times a day when necessary for stent discomfort or burning on urination. Vicodin as needed for discomfort. Progress Note Subjective: feels better Narrative: having expected stent discomfort. Objective Initial Vital Signs Temp Pulse Resp BP Pulse Ox 98.9 F 128 18 108/79 98 06/20/17 18:47 06/20/17 18:47 06/20/17 18:47 06/20/17 18:47 06/20/17 18:47 - General physical appearance Present: well developed, no distress - Labs 06/22/17 05:04 06/22/17 05:04 Diabetes panel 06/22/17 Range/Units 05:04 Sodium 139 (136-145) mEq/L Potassium 3.5 (3.5-5.1) mEq/L Chloride 108 H (98-107) mEq/L Carbon Dioxide 24 (23-29) mEq/L BUN 18 (6-20) mg/dL Creatinine 0.77 (0.60-1.20) mg/dL Glucose 165 H (70-105) mg/dL Calcium 8.4 L (8.6-10.3) mg/dL Calcium panel 06/22/17 Range/Units 05:04 Calcium 8.4 L (8.6-10.3) mg/dL Pituitary panel 06/22/17 Range/Units 05:04 Sodium 139 (136-145) mEq/L Potassium 3.5 (3.5-5.1) mEq/L Chloride 108 H (98-107) mEq/L Carbon Dioxide 24 (23-29) mEq/L BUN 18 (6-20) mg/dL Creatinine 0.77 (0.60-1.20) mg/dL Glucose 165 H (70-105) mg/dL Calcium 8.4 L (8.6-10.3) mg/dL Adrenal panel 06/22/17 Range/Units 05:04 Sodium 139 (136-145) mEq/L Potassium 3.5 (3.5-5.1) mEq/L Chloride 108 H (98-107) mEq/L Carbon Dioxide 24 (23-29) mEq/L BUN 18 (6-20) mg/dL Creatinine 0.77 (0.60-1.20) mg/dL Glucose 165 H (70-105) mg/dL Calcium 8.4 L (8.6-10.3) mg/dL Consult Discharge Plan - Plan Referrals: Rossana Harmon MD [Primary Care Provider] -
--- NOTE | 2017-06-22 08:37 | Discharge Summary ---
Date of Encounter: 06/22/17 Time of Encounter: 08:35 - Discharge Diagnosis (1) Leukocytosis Priority: Primary Status: Acute Qualifiers: Leukocytosis type: bandemia Qualified Code(s): D72.825 - Bandemia (2) Hydronephrosis with renal calculous obstruction Priority: Primary Status: Acute (3) UTI (urinary tract infection) Priority: Primary Status: Acute Qualifiers: Urinary tract infection type: acute pyelonephritis Qualified Code(s): N10 - Acute pyelonephritis (4) Multiple lung nodules on CT Priority: Secondary Status: Acute - Discharge Medications Prescriptions: OxyCODONE/APAP 5/325 [Percocet 5/325 MG] 1 each PO Q4HR PRN #12 tablet PRN Reason: Moderate Pain Phenazopyridine [Pyridium] 100 mg PO TID PRN #12 tablet PRN Reason: Pain Sulfamethoxazole/Trimeth DS [Bactrim DS] 1 each PO BID #14 tablet Home Medications: Celecoxib [Celebrex] 200 mg PO DAILY 06/21/17 [History] Levothyroxine [Synthroid] 75 mcg PO DAILY 06/21/17 [History] Lisinopril [Zestril] 20 mg PO DAILY 06/21/17 [History] Meloxicam [Mobic] 15 mg PO DAILY 06/21/17 [History] OxyCODONE/APAP 5/325 [Percocet 5/325 MG] 1 each PO Q4HR PRN #12 tablet 06/22/17 [Rx] Phenazopyridine [Pyridium] 100 mg PO TID PRN #12 tablet 06/22/17 [Rx] Sulfamethoxazole/Trimeth DS [Bactrim DS] 1 each PO BID #14 tablet 06/22/17 [Rx] Allergies/Adverse Reactions: 3 Allergy/AdvReac Type Severity Reaction Status Date / Time No Known Allergies Allergy Verified 06/20/17 18:46 Date of admission: 06/20/17 21:16 Primary care physician: Rossana Harmon, Consults: 06/20/17 21:26 Consult to Urology [CONS] Routine Consulting Provider: Urology Zahraa Reason for Consult: kidney stones Call Completed: Yes - Patient Status Disposition: Home, Self-Care Condition: Fair Overall status at discharge: patient is progressing back to baseline - Discharge Instructions Follow Up With: Javier Harmon MD [Partnered Physician] - 07/04/17 8:15 am (2 weeks) - Diet and Activity Activity: resume usual activities as tolerated Hospital course: Ms. Montalvo is a 47 year old female with history of nephrolithiasis presented for bilateral flank pain. She was shown to have UTI and leukocytosis. A CT of abdomen/pelvis showed 6.5 mm obstructing stone in right ureter with hydroureter and hydronephrosis. There was a nonobstructing 3 mm stone within the proximal left ureter and nonobstructing 6.4 mm stone within the left kidney. There was multiple pulmonary nodules within the right lower and middle lobes with the largest being 8.4 mm. She was started on IVF, Levaquin, and pain control. She was admitted to the hospitalist service. She was seen by urology and she underwent bilateral ureteroscopic stone extraction. Laser lithotripsy on the right. Bilateral stents were placed. She was stable for discharge the following day on 06/22/2017 with follow-up with urology. She was recommended Bactrim twice a day at discharge for 7 more days. She will follow up with urology as well as her primary care physician. Of note her urine cultures remain negative. Patient would need to have follow-up CTs regarding her nodules seen on CT in the lungs. - Time Spent with Patient Total time spent providing and/or coordinating discharge services: Greater than 30 minutes - Constitutional Vitals: Temp Pulse Resp BP Pulse Ox 99.5 F 77 14 110/70 97 06/22/17 06:47 06/22/17 06:47 06/22/17 06:47 06/22/17 06:47 06/22/17 06:47 Exam: GEN: NAD CVS: RRR. S1, S2, No m/r/g RESP: CTAB ABD: Soft, NT, ND, +BS EXT: No edema. 2+ DP. No rashes NEURO: Nonfocal
[2017-06-22] MEDS ORDERED: Lisinopril 20 MG TABLET PO SCH (09:00)
[2017-06-22] MEDS ORDERED: Celecoxib 200 MG CAPSULE PO SCH (09:00)
[2017-06-22] MEDS ORDERED: cefTRIAXone 1,000 MG in Water for inj. (sterile) 10 ML IVP SCH (10:00)
== END 2017-06-22 10:15 | disposition home or self-care (01) ==
LOC: 3ANU 18:44 → EMEROO 18:44 → SUATTDRO 21:16 → 3ANU 21:30
PROVIDERS: ADMIT Internal Medicine; ATTEND Hospitalist